=== PATIENT | female | born 1945 | race Two or more races ===

== ENCOUNTER → 2018-05-18 | Outpatient (CLI) | payer OTHER | END | disposition home or self-care (01) | LOC: NUCLEAR 08:34 | DX: R60.0 Localized edema (principal) ==

== ENCOUNTER 2018-05-19 08:31 | Outpatient (CLI) | payer OTHER | END 2018-05-19 08:52 | disposition home or self-care (01) | LOC: SONOGRAMA 08:31 → MAMO-SONO 08:31 → SONOGRAMA 08:52 → MAMO-SONO 09:15 | DX: M12.862 Other specific arthropathies, not elsewhere classified, left knee (principal); M17.12 Unilateral primary osteoarthritis, left knee ==

== ENCOUNTER 2023-01-20 11:50 | Emergency (ER) | payer OTHER ==
[~2023-01-20] VITALS: Ht 152.4 cm; Wt 64.4 kg
[2023-01-20] MEDS ORDERED: CLONAZEPAM2 M1 PO (11:59)
[2023-01-20] MEDS ORDERED: SYNTHROID75 MCG PO (11:59)
[2023-01-20] MEDS ORDERED: LEXAPRO5 MG PO (11:59)
[2023-01-20] MEDS ORDERED: ZESTRIL10 M1 PO (11:59)
== END 2023-01-20 14:56 | disposition home or self-care (01) ==
LOC: ER 11:50
DX: S80.02XA Contusion of left knee, initial encounter (principal); S80.01XA Contusion of right knee, initial encounter; W18.39XA Other fall on same level, initial encounter; Y93.89 Activity, other specified; Y92.413 State road as the place of occurrence of the external cause; Z88.6 Allergy status to analgesic agent

== ENCOUNTER → 2025-06-11 | Outpatient (CLI) | payer OTHER ==
[~2025-06-11] MED LIST: CLONAZEPAM2 M1 PO; LEXAPRO5 MG PO; SYNTHROID75 MCG PO; ZESTRIL10 M1 PO
== END | disposition home or self-care (01) ==
LOC: SONOGRAMA 09:55
PROVIDERS: ATTEND Internal Medicine Cardiovascular Disease
DX: M19.90 Unspecified osteoarthritis, unspecified site (principal)